=== PATIENT | female | born 1980 | race Caucasian/White ===

== ENCOUNTER 2016-11-24 11:06 | Emergency (ER) | payer SELFPAY ==
[~2016-11-24] VITALS: Ht 180.3 cm; Wt 73.0 kg
[~2016-11-24 11:06] MED LIST: BUPR150T PO; LAMO25 PO; TRAZ100 PO; TRAZ150T75 PO
[2016-11-24 11:07] VITALS: BP 118/82; PULSE 100; RESP 20; TEMP 98.5; O2SAT 98
--- NOTE | 2016-11-24 11:27 | PD ---
Physical Exam Time Seen by Provider: 11:26 Narrative Facial sunburn since monday. No fever, vomiting. VSS Seen in triage, awaiting bed placement. Data Data Last Documented VS Vital Signs Date Time Temp Pulse Resp B/P Pulse Ox O2 Delivery O2 Flow Rate FiO2 11/24/16 11:07 98.5 100 20 118/82 98 Room Air MDM Supervised Visit with HANSEL: Shanti Quintero Nov 24, 2016 11:27
--- NOTE | 2016-11-24 11:48 | PD ---
HPI Chief Complaint: Skin Problem Time Seen by Provider: 11:43 Travel History International Travel<30 days: No Contact w/Intl Traveler<30days: No Traveled to known affect area: No History of Present Illness HPI Patient is a 36-year-old female sent into the emergency room for evaluation of a sunburn. Patient states she was out in the sun for several hours on Monday. Her face became red and puffy Monday afternoon subsequently peeling. It has been peeling since that time. She denies any fever, chills, nausea, vomiting, headache or shortness of breath. Patient is from a sober living house and needs medical clearance. PFSH Past Medical History Hx Anticoagulant Therapy: No Bipolar Disorder: Yes Anxiety: Yes Depression: Yes Cardiovascular Problems: No Chemotherapy: No Cerebrovascular Accident: No Diabetes: No Respiratory: No Tetanus Vaccination: < 5 Years ?: Not : 5 Para: 3 : 2 Past Surgical History Surgical History: No Previous Surgery Hysterectomy: No Social History Alcohol Use: No (socially) Tobacco Use: Yes (1 PPD ) Substance Use: No Allergies-Medications (Allergen,Severity, Reaction): Coded Allergies: No Known Allergies (Unverified , 04/04/15) Reported Meds & Prescriptions Reported Meds & Active Scripts Active Review of Systems Except as stated in HPI: all other systems reviewed are Neg General / Constitutional: No: Fever, Chills HENT: No: Headaches, Lightheadedness Respiratory: No: Shortness of Breath Gastrointestinal: No: Nausea Musculoskeletal: No: Myalgias Skin: Positive Dryness, Positive Change in Pigmentation Physical Exam Narrative GENERAL: Well-nourished, well-developed patient. SKIN: Focused skin assessment warm/dry. Erythematous, dry flaky skin to face. HEAD: Normocephalic. EYES: No scleral icterus. No injection or drainage. NECK: Supple, trachea midline. No JVD or lymphadenopathy. CARDIOVASCULAR: Regular rate and rhythm without murmurs, gallops, or rubs. RESPIRATORY: Breath sounds equal bilaterally. No accessory muscle use. GASTROINTESTINAL: Abdomen soft, non-tender, nondistended. MUSCULOSKELETAL: No cyanosis, or edema. BACK: Nontender without obvious deformity. No CVA tenderness. Data Data Last Documented VS Vital Signs Date Time Temp Pulse Resp B/P Pulse Ox O2 Delivery O2 Flow Rate FiO2 11/24/16 11:07 98.5 100 20 118/82 98 Room Air MDM Medical Decision Making Medical Screen Exam Complete: Yes Emergency Medical Condition: No Interpretation(s) Vital Signs Date Time Temp Pulse Resp B/P Pulse Ox O2 Delivery O2 Flow Rate FiO2 11/24/16 11:07 98.5 100 20 118/82 98 Room Air Differential Diagnosis Sunburn versus second-degree burn versus electrolyte abnormality versus other Narrative Course Patient is a 36-year-old female presented to emergency room for evaluation of a sunburn to her face. She is in a sober living house and needed to Have medical clearance. She denies any other physical complaints. She denies any pain to her face. Her vital signs are stable. Patient was encouraged to obtain over- the-counter Marika-cream moisturizer or after sun moisturizer. She is encouraged to wear sunscreen when she is out in the sun to avoid premature aging, further sunburns, and to decrease her risk of skin cancer. Patient verbalized understanding of these instructions. Patient is stable for discharge. Diagnosis Primary Impression: Superficial sunburn Referrals: Primary Care Physician Patient Instructions: General Instructions, Sunburn (ED) Additional Instructions: Wear sunscreen Limit exposure to the sun between 10a and 2p Follow-up with her primary doctor Obtain [id number] marika-cream or after sun moisturizer and use as directed Return to emergency department for any new or worsening symptoms Med/Other Pt SpecificInfo: No Change to Meds Disposition: 01 DISCHARGE HOME Condition: Stable Kaylin Ruiz Nov 24, 2016 11:48
== END 2016-11-24 12:03 | disposition home or self-care (01) ==
LOC: NEPD 11:06
DX: L55.9 Sunburn, unspecified (principal); F17.200 Nicotine dependence, unspecified, uncomplicated; Z86.59 Personal history of other mental and behavioral disorders
CPT/HCPCS: 99282

== ENCOUNTER 2016-11-25 14:36 | Emergency (ER) | payer SELFPAY ==
[~2016-11-25] VITALS: Ht 180.3 cm; Wt 68.0 kg
[2016-11-25 14:38] VITALS: BP 144/76; PULSE 92; RESP 20; TEMP 97.5; O2SAT 97
--- NOTE | 2016-11-25 14:44 | PD ---
Physical Exam Date Seen by Provider: Nov 25, 2016 Time Seen by Provider: 14:42 Narrative 36 year old female presents to the emergency department for evaluation of anger , depression that she states has been ongoing for "37 years". She denies any suicidal/homicidal ideation. She states she has pain due to her sunburn. Vital signs reviewed. Patient awaiting bed placement. Data Data Last Documented VS Vital Signs Date Time Temp Pulse Resp B/P Pulse Ox O2 Delivery O2 Flow Rate FiO2 11/25/16 14:38 97.5 92 20 144/76 97 Room Air [facility] Supervised Visit with HANSEL: Radha Ashley Nov 25, 2016 14:44
[2016-11-25 15:15] VITALS: BP 137/61; PULSE 91; RESP 18; TEMP 99.1; O2SAT 100
[2016-11-25 18:19] VITALS: BP 116/72; PULSE 93; RESP 18; TEMP 99.3; O2SAT 99
[2016-11-25 18:34] LABS: AUTOMATED NEUTROPHIL # 5.3 TH/MM3 (1.8-7.7); BASOPHIL % 0.4 % (0.0-2.0); EOSINOPHIL # 0.2 TH/MM3 (0-0.4); EOSINOPHIL % 1.9 % (0.0-4.0); HEMATOCRIT 41.4 % (35.0-46.0); HEMO FLAGS DIFF FINAL; LYMPH % 34.7 % (9.0-44.0); LYMPHOCYTE # 3.2 TH/MM3 (1.0-4.8); MEAN CELL VOLUME 88.8 FL (80.0-100.0); MEAN CORPUSCULAR HGB CONC 33.7 % (32.0-36.0); MONO % 5.7 % (0.0-8.0); NEUT % 57.3 % (16.0-70.0); PLATELET COUNT 282 TH/MM3 (150-450); RED BLOOD COUNT 4.66 MIL/MM3 (4.00-5.30); RED CELL DISTRIBUTION WIDTH 12.4 % (11.6-17.2); WHITE BLOOD COUNT 9.2 TH/MM3 (4.0-11.0)
[2016-11-25 18:48] LABS: AMPHETAMINE, URINE NEG (NEG); BARBITURATES, URINE NEG (NEG); COCAINE, URINE NEG (NEG)
[2016-11-25 19:04] LABS: ANION GAP 6 MEQ/L (5-15); AST (GOT) 15 U/L (15-37); BICARBONATE 31.9 MEQ/L (21.0-32.0); BLOOD UREA NITROGEN 5 MG/DL (7-18); CHLORIDE 104 MEQ/L (98-107); GLOMERULAR FILTRATION RATE 66 ML/MIN (>89); POTASSIUM 3.4 MEQ/L (3.5-5.1); SODIUM (NA) 142 MEQ/L (136-145)
[2016-11-25 19:07] LABS: ALKALINE PHOSPHATASE 55 U/L (45-117); ALT (GPT) 35 U/L (10-53); TOTAL BILIRUBIN ADULT 0.4 MG/DL (0.2-1.0)
--- NOTE | 2016-11-25 19:08 | PD ---
History of Present Illness Chief Complaint: Psychiatric Symptoms Time Seen by Provider: 16:00 Travel History International Travel<30 Days: No Contact w/Intl Traveler<30days: No Known affected area: No Legal Status Legal Status: Voluntary History of Present Illness: 36 year old female with history of substance abuse who denies any history of psychiatric care who presents to the emergency department on a voluntary status for evaluation of anger, depression that she states has been ongoing for "37 years". Patient reports that she has been at a sober living house x 1 week. She states that the director of the house requested she come to the hospital for an evaluation of her anger issues. Patient denies that she has been violent or aggressive and denies that she has had a relapse. Review of current lab work confirms as her screen is negative. She tells me that she does not know why the counselor at the sober [facility] told her to come here. Patient provided verbal authorization to contact her sober living facility. I spoke with Jannette Radford the project executive of [address] [place] [address]. She reports that the Patient has been there x 1 week and they have noticed that she has changes in her mood. " One minute she is calm and the next minute she is in a rage and that she has been verbally aggressive with other residents. She also reports that she contacted the patient's [employer] officer and has found out that the patient has a history of criminal behavior including including felony battery charges. She states that for this reason she cannot stay there. She also reports that this morning the patient made a statement that she wishes she was '. The patient was monitored in J pod. She was calm and slept. She did not present any behavioral concerns. I spoke with her regarding my conversation with Jannette. The patient continues to deny that she has been a problem at the living sober house. She denies any current psychiatric symptoms and continues to deny that she has a history of psychiatric history. As per review of her chart she was seen in [facility] ed in 2014 after she moved to the area and at the time she reported that she was in tx for depression. Past hx of Flakka use as well. Patient is requesting to be discharged at this time. She has not presented any criteria that would indicate she is in need of involuntary treatment. Denies suicidal or homicidal ideation. There is no evidence of any psychosis and there is no jarrod. PFSH Past Medical History Hx Anticoagulant Therapy: No Bipolar Disorder: Yes Anxiety: Yes Depression: Yes Cardiovascular Problems: No Chemotherapy: No Cerebrovascular Accident: No Diabetes: No Patient Takes Glucophage: No Respiratory: No Tetanus Vaccination: < 5 Years ?: Unknown LMP: Estimates a week ago per pt. : 7 Para: 3 Miscarriage: 2 : 2 Past Surgical History Surgical History: No Previous Surgery Hysterectomy: No Tonsillectomy: Yes Psychiatric History Psychiatric History Hx Psychiatric Treatment: BIPOLAR DISORDER, DEPRESSION, ANXIETY. She deneis any History of Inpatient Treatment: No Guns or firearms in home: No Social History Single female. has been living at sober living home x 1 week after she was released from half-way. Hx Alcohol Use: No (socially) Hx Tobacco Use: Yes (1 PPD ) Hx Substance Use: No Substance Use Type: Alcohol, Marijuana, Nicotine/Cigarettes Hx of Substance Use Treatment: No Family Psychiatric History none reported Allergies-Medications (Allergen,Severity, Reaction): Coded Allergies: No Known Allergies (Unverified , 11/25/16) Per pt. Reported Meds & Prescriptions Reported Meds & Active Scripts Active No Active Prescriptions or Reported Medications Review of Systems Integumentary: COMPLAINS OF: Abnormal pigmentation (sunburned) Psychiatric: DENIES: Anxiety, Confusion, Mood changes, Depression, Hallucinations, Agitation, Suicidal Ideation, Homicidal Ideation, Delusions Exam Alert: Yes [place]: Person (ox4) Mood: Calm Affect: Appropriate Speech: Clear, Logical Eye Contact: Normal Memory Intact: Immediate (no gross abnormality) Hallucinations: Other (deneies any) Delusions: No Suicidal: Ideation (deneis any) Homicidal: Ideation (denies any) Insight/Judgement fair. not impaired MDM Medical Decision Making Medical Record Reviewed: Yes Assessment/Plan At 1845 patient requests to be discharged as she wants to go out and smoke.She also tells me that she has another residence that she can go to and that she has spoken with Jannette about such a residence. She is denying any suicidal or homicidal ideation and at this time presents no criteria for me to retain her here against her will. She will be released as per her request. Orders Diet Regular Basic (11/25/16 Dinner) Complete Blood Count With Diff (11/25/16 16:46) Comprehensive Metabolic Panel (11/25/16 16:46) Drug Screen, Random Urine (11/25/16 16:46) Alcohol (Ethanol) (11/25/16 16:46) Results Vital Signs Date Time Temp Pulse Resp B/P Pulse Ox O2 Delivery O2 Flow Rate FiO2 11/25/16 18:19 99.3 93 18 116/72 99 11/25/16 15:15 99.1 91 18 137/61 100 Room Air 11/25/16 14:38 97.5 92 20 144/76 97 Room Air Laboratory Tests Test 11/25/16 11/25/16 17:00 18:08 Urine Opiates Screen NEG Urine Barbiturates Screen NEG Urine Amphetamines Screen NEG Urine Benzodiazepines Screen NEG Urine Cocaine Screen NEG Urine Cannabinoids Screen NEG White Blood Count 9.2 Red Blood Count 4.66 Hemoglobin 14.0 Hematocrit 41.4 Mean Corpuscular Volume 88.8 Mean Corpuscular Hemoglobin 30.0 Mean Corpuscular Hemoglobin 33.7 Concent Red Cell Distribution Width 12.4 Platelet Count 282 Mean Platelet Volume 8.6 Neutrophils (%) (Auto) 57.3 Lymphocytes (%) (Auto) 34.7 Monocytes (%) (Auto) 5.7 Eosinophils (%) (Auto) 1.9 Basophils (%) (Auto) 0.4 Neutrophils # (Auto) 5.3 Lymphocytes # (Auto) 3.2 Monocytes # (Auto) 0.5 Eosinophils # (Auto) 0.2 Basophils # (Auto) 0.0 CBC Comment DIFF FINAL Differential Comment Diagnosis Primary Impression: Adjustment disorder Additional Impression: Substance abuse Psychiatrically Cleared: Yes Med/ Other Pt Specific Info: No Meds Exist/No RX given Prescriptions No Active Prescriptions or Reported Meds Disposition: 01 DISCHARGE HOME Condition: Stable Problem Qualifiers Primary Impression: Adjustment disorder Qualified Code: F43.20 - Adjustment disorder, unspecified type Marissa Hung Nov 25, 2016 19:08
== END 2016-11-25 19:12 | disposition home or self-care (01) ==
LOC: NEPJ 14:36
DX: F43.20 Adjustment disorder, unspecified (principal); F19.10 Other psychoactive substance abuse, uncomplicated; F17.210 Nicotine dependence, cigarettes, uncomplicated; F10.10 Alcohol abuse, uncomplicated; F12.10 Cannabis abuse, uncomplicated
CPT/HCPCS: 80053; 80307; 85025; 99283